=== PATIENT | female | born 1935 | race Caucasian/White ===

== ENCOUNTER → 2016-11-10 | Outpatient (CLI) | payer MEDICARE ==
[~2016-11-10] MED LIST: ACETAMINOPHEN-H1 TA2 PO; COZAAR50 MG PO; CYCLOBENZAPRINE10 MG PO; HYDROCODONE BIT1 T11 PO; IBU800 M1 PO; LEVOFLOXACIN500 MG PO; MACROBID100 M1 PO; MEDROL DOSEPAK4 MG PO; MELOXICAM15 MG PO; MOBIC15 MG PO; MYCOLOG CREAM 115 GM T; NASONEX0.05 MG/AC NAS; NORVASC5 MG PO; PREDNICOT10 MG PO; PREDNISONE10 MG PO; PREMARIN0.3 MG PO; PYRIDIUM200 MG PO; VICODIN HP 10-1 EACH PO; [UNRECOGNIZED DRUG - OTHER] PO; [UNRECOGNIZED DRUG - REMARK]
== END | disposition home or self-care (01) ==
LOC: LAB 11:51
DX: E83.51 Hypocalcemia (principal)

== ENCOUNTER → 2017-04-29 | Outpatient (CLI) | payer MEDICARE ==
[2017-04-29 12:31] LABS: BASO % 0.4 % (0.0-1.0); EOS # 0.1 10*3/uL (0.0-0.4); EOS % 1.4 % (1.0-4.0); HEMATOCRIT 36.1 % (37.0-47.0); HEMOGLOBIN 11.9 g/dl (12.0-16.0); LYMPH # 1.5 10*3/uL (1.3-4.4); LYMPH % 19.3 % (27.0-41.0); MEAN CELL VOLUME 90.5 fl (81.0-99.0); MEAN CORPUSCULAR HGB 29.8 pg (27.0-31.0); MEAN PLATELET VOLUME 9.6 fl (9.6-12.3); MONO # 0.5 10*3/uL (0.1-1.0); MONO % 6.4 % (3.0-9.0); NEUT # 5.5 10*3/uL (2.3-7.9); PLATELET COUNT AUTOMATED 275 10*3/uL (130-400); RED BLOOD COUNT 3.99 10*6/uL (4.10-5.10); RED CELL DISTRI WIDTH 13.5 % (0-14.5); WHITE BLOOD COUNT 7.6 10*3/uL (4.8-10.8)
[2017-04-29 12:49] LABS: ALBUMIN 3.5 gm/dl (3.1-4.5); ALKALINE PHOSPHATASE 70 U/L (45-117); BILIRUBIN, DIRECT < 0.1 mg/dL (0.0-0.2); BUN 16 mg/dl (7-24); CHLORIDE 106 mmol/L (98-107); CREATININE 0.57 mg/dL (0.55-1.02); POTASSIUM 3.9 mmol/L (3.5-5.1); SGOT/AST 17 IU/L (3-35); SGPT/ALT 30 U/L (12-78); SODIUM 142 mmol/L (136-145); TOTAL PROTEIN 6.8 gm/dL (6.4-8.2)
== END | disposition home or self-care (01) ==
LOC: LAB 11:49
PROVIDERS: Family Medicine
DX: I10 Essential (primary) hypertension (principal); E55.9 Vitamin D deficiency, unspecified

== ENCOUNTER 2017-07-08 11:11 | Emergency (ER) | payer MEDICARE ==
[~2017-07-08] VITALS: Ht 167.6 cm; Wt 72.6 kg
[2017-07-08 11:18] VITALS: BP 171/69
[2017-07-08] MEDS ORDERED: CLEOCIN HCL300 MG PO (11:47)
== END 2017-07-08 11:48 | disposition home or self-care (01) ==
LOC: ED 11:11
DX: L03.115 Cellulitis of right lower limb (principal); Z90.710 Acquired absence of both cervix and uterus; Z98.890 Other specified postprocedural states; Z90.49 Acquired absence of other specified parts of digestive tract; Z79.899 Other long term (current) drug therapy; Z88.2 Allergy status to sulfonamides

== ENCOUNTER 2017-07-27 12:08 | Emergency (ER) | payer MEDICARE ==
[~2017-07-27] VITALS: Ht 165.1 cm; Wt 72.6 kg
[~2017-07-27 12:08] MED LIST changes: +CLEOCIN HCL300 MG PO
[2017-07-27 12:15] VITALS: BP 184/88
[2017-07-27 12:57] LABS: BASO % 0.4 % (0.0-1.0); EOS # 0.1 10*3/uL (0.0-0.4); EOS % 1.4 % (1.0-4.0); HEMATOCRIT 37.5 % (37.0-47.0); HEMOGLOBIN 12.3 g/dl (12.0-16.0); LYMPH # 1.8 10*3/uL (1.3-4.4); LYMPH % 35.8 % (27.0-41.0); MEAN CELL VOLUME 89.3 fl (81.0-99.0); MEAN CORPUSCULAR HGB 29.3 pg (27.0-31.0); MEAN CORPUSCULAR HGB CONC 32.8 g/dl (33.0-37.0); MONO # 0.5 10*3/uL (0.1-1.0); MONO % 9.7 % (3.0-9.0); NEUT # 2.6 10*3/uL (2.3-7.9); NEUT % 52.5 % (47.0-73.0); PLATELET COUNT AUTOMATED 226 10*3/uL (130-400); RED CELL DISTRI WIDTH 12.4 % (0-14.5); WHITE BLOOD COUNT 4.9 10*3/uL (4.8-10.8)
[2017-07-27 13:15] LABS: ALBUMIN 3.5 gm/dl (3.1-4.5); ALKALINE PHOSPHATASE 60 U/L (45-117); BUN 13 mg/dl (7-24); CHLORIDE 108 mmol/L (98-107); CREATININE 0.58 mg/dL (0.55-1.02); POTASSIUM 3.6 mmol/L (3.5-5.1); SGOT/AST 16 IU/L (3-35); SGPT/ALT 23 U/L (12-78); SODIUM 141 mmol/L (136-145); TOTAL PROTEIN 6.9 gm/dL (6.4-8.2)
[2017-07-27] MEDS ORDERED: NAPROSYN500 MG PO (13:18)
== END 2017-07-27 13:21 | disposition home or self-care (01) ==
LOC: ED 12:08
PROVIDERS: Nurse Practitioner Family
DX: M79.661 Pain in right lower leg (principal); R03.0 Elevated blood-pressure reading, without diagnosis of hypertension; Z90.710 Acquired absence of both cervix and uterus; Z90.49 Acquired absence of other specified parts of digestive tract; Z88.2 Allergy status to sulfonamides; Z79.899 Other long term (current) drug therapy

== ENCOUNTER 2017-11-13 12:32 | Emergency (ER) | payer MEDICARE ==
[~2017-11-13] VITALS: Ht 165.1 cm; Wt 72.6 kg
[~2017-11-13 12:32] MED LIST changes: +NAPROSYN500 MG PO
[2017-11-13 12:34] VITALS: BP 166/68
[2017-11-13] MEDS ORDERED: VISTARIL25 MG PO (12:42)
== END 2017-11-13 12:55 | disposition home or self-care (01) ==
LOC: ED 12:32
DX: R21 Rash and other nonspecific skin eruption (principal); R03.0 Elevated blood-pressure reading, without diagnosis of hypertension; Z88.2 Allergy status to sulfonamides; Z79.899 Other long term (current) drug therapy

== ENCOUNTER 2018-02-22 22:47 | Inpatient (IN) | payer MEDICARE ==
[~2018-02-22] VITALS: Ht 165.1 cm; Wt 65.5 kg
--- NOTE | ~2018-02-22 | EKG ---
[place], [place] ELECTROCARDIOGRAM REPORT NAME: ULISES CELAYA UNIT #: [id number] ROOM: 420 DOCTOR: ABEL DRAFT REPORT BIRTHDATE: [birth year] [facility] Test Date: 2018-02-22 Test Time: 23:34:34 Pat Name: ULISES CELAYA Department: Room: 420 Gender: F [employer] Consultant: SS RESP : 1935 Requested By: DAVIDE TANG Order Number: [id number] Reading MD: John Petersen MD Measurements Intervals [place] Rate: 78 P: 49 ID: [id number] QRS: 67 QRSD: 96 T: 61 QT: 408 QTc: 465 Interpretive Statements Sinus rhythm Borderline prolonged ID interval Abnormal R-wave progression, early transition Electronically Signed On 02-25-2018 14:26:47 PST by John Petersen MD CM:EKGRPT:ELECTROCARDIOGRAM REPORT [id number] DAVIDE SMART DRAFT REPORT DAVIDE TANG DO
[2018-02-22 22:47] VITALS: BP 164/61
[~2018-02-22 22:47] MED LIST changes: +VISTARIL25 MG PO
[2018-02-22 23:40] LABS: BASO % 0.4 % (0.0-1.0); EOS # 0.2 10*3/uL (0.0-0.4); EOS % 1.7 % (1.0-4.0); HEMATOCRIT 34.6 % (37.0-47.0); HEMOGLOBIN 11.3 g/dl (12.0-16.0); LYMPH # 1.8 10*3/uL (1.3-4.4); LYMPH % 19.1 % (27.0-41.0); MEAN CELL VOLUME 91.1 fl (81.0-99.0); MEAN CORPUSCULAR HGB 29.7 pg (27.0-31.0); MEAN CORPUSCULAR HGB CONC 32.7 g/dl (33.0-37.0); MEAN PLATELET VOLUME 9.6 fl (9.6-12.3); MONO # 0.6 10*3/uL (0.1-1.0); MONO % 6.3 % (3.0-9.0); NEUT # 6.8 10*3/uL (2.3-7.9); NEUT % 72.2 % (47.0-73.0); PLATELET COUNT AUTOMATED 236 10*3/uL (130-400); RED CELL DISTRI WIDTH 13.2 % (0-14.5); WHITE BLOOD COUNT 9.5 10*3/uL (4.8-10.8)
[2018-02-22 23:57] LABS: ALBUMIN 3.3 gm/dl (3.1-4.5); ALKALINE PHOSPHATASE 60 U/L (45-117); BUN 21 mg/dl (7-24); CHLORIDE 109 mmol/L (98-107); CREATININE 0.59 mg/dL (0.55-1.02); POTASSIUM 3.7 mmol/L (3.5-5.1); SGOT/AST 15 IU/L (3-35); SGPT/ALT 21 U/L (12-78); SODIUM 143 mmol/L (136-145); TOTAL PROTEIN 6.7 gm/dL (6.4-8.2)
[2018-02-22 23:59] LABS: TROPONIN I < 0.015 ng/ml (<0.045)
[2018-02-23] VITALS (7 sets, daily range): BP systolic 146–172; BP diastolic 51–87
[2018-02-23 01:10] LABS: BILIRUBIN NEGATIVE (NEGATIVE); BLOOD 1+ (NEGATIVE); CLARITY SL CLOUDY (CLEAR); COLOR YELLOW (YELLOW); GLUCOSE NEGATIVE (NEGATIVE); KETONE NEGATIVE (NEGATIVE); LEUKO ESTERASE TRACE (NEGATIVE); NITRITE NEGATIVE (NEGATIVE); UROBILINOGEN 0.2 E.U./dl (0.2-1.0)
[2018-02-23 01:24] LABS: EPITHELIAL CELLS 25-30
[2018-02-23] MEDS ORDERED: BENADRYL ALLERG25 M5 PO (03:02)
[2018-02-24] VITALS: BP 113/59; BP 149/58
[2018-02-24 06:28] LABS: BASO % 0.4 % (0.0-1.0); EOS # 0.1 10*3/uL (0.0-0.4); EOS % 1.9 % (1.0-4.0); HEMOGLOBIN 10.7 g/dl (12.0-16.0); LYMPH # 1.2 10*3/uL (1.3-4.4); LYMPH % 17.7 % (27.0-41.0); MEAN CELL VOLUME 91.4 fl (81.0-99.0); MEAN CORPUSCULAR HGB 29.6 pg (27.0-31.0); MEAN CORPUSCULAR HGB CONC 32.4 g/dl (33.0-37.0); MEAN PLATELET VOLUME 9.9 fl (9.6-12.3); MONO # 0.6 10*3/uL (0.1-1.0); MONO % 9.2 % (3.0-9.0); NEUT # 4.9 10*3/uL (2.3-7.9); NEUT % 70.5 % (47.0-73.0); PLATELET COUNT AUTOMATED 228 10*3/uL (130-400); RED BLOOD COUNT 3.61 10*6/uL (4.10-5.10); RED CELL DISTRI WIDTH 13.3 % (0-14.5)
[2018-02-24 06:47] LABS: BUN 12 mg/dl (7-24); CHLORIDE 109 mmol/L (98-107); CHOLESTEROL 125 mg/dL (<200); CREATININE 0.46 mg/dL (0.55-1.02); PHOSPHOROUS 3.4 mg/dL (2.5-4.9); POTASSIUM 3.6 mmol/L (3.5-5.1); SODIUM 141 mmol/L (136-145); TRIGLYCERIDES 83 mg/dl (<150); VLDL CHOLESTEROL 17 mg/dL (6-40)
[2018-02-24 06:57] LABS: HDL CHOLESTEROL 38 mg/dl (40-60); LDL CHOLESTEROL 70 mg/dL (9-159)
[2018-02-24] MEDS ORDERED: HYDROCODONE-AC1 EACH PO (07:22)
[2018-02-24] MEDS ORDERED: VITAMIN D5000 UNI1 PO (07:23)
[2018-02-24 08:00] VITALS: BP 155/56
[2018-02-24 10:35] LABS: VITAMIN D, 25-HYDROXY 35.1 ng/mL (30-100)
[2018-02-24 12:00] VITALS: BP 150/58
[2018-02-24 16:00] VITALS: BP 142/51
[2018-02-24 20:00] VITALS: BP 155/55
[2018-02-25] VITALS: BP 146/62
[2018-02-25 08:00] VITALS: BP 162/64
[2018-02-25 12:00] VITALS: BP 158/64
[2018-02-25 15:35] VITALS: BP 160/61
[2018-02-25 20:00] VITALS: BP 163/58
[2018-02-26] VITALS: BP 146/59
[2018-02-26 08:00] VITALS: BP 150/58
[2018-02-26 12:00] VITALS: BP 130/48
[2018-02-26] MEDS ORDERED: HYDROCODONE-AC1 EACH PO (13:29)
[2018-03-10] MEDS ORDERED: DOXYCYCLINE100 M3 PO (12:17)
[2018-03-10] MEDS ORDERED: ULTRAM50 MG PO (12:18)
[2018-03-10] MEDS ORDERED: XARELTO10 MG PO (12:19)
[2018-03-11] MEDS ORDERED: MACROBID100 M1 PO (14:55)
[2018-03-11] MEDS ORDERED: TRAZODONE50 MG PO (14:56)
[2018-03-11] MEDS ORDERED: TYLENOL325 M1 PO (14:57)
== END 2018-02-26 15:40 | disposition other institution (70) | DRG 563 ==
LOC: ED 22:47 → EDHOLD 02-23 02:24 → 4E 02-23 02:24
PROVIDERS: Emergency Medicine; Student in an Organized Health Care Education/Training Program
DX: S82.852A Displaced trimalleolar fracture of left lower leg, initial encounter for closed fracture (principal); E44.1 Mild protein-calorie malnutrition; I50.32 Chronic diastolic (congestive) heart failure; I11.0 Hypertensive heart disease with heart failure; R55 Syncope and collapse; E87.8 Other disorders of electrolyte and fluid balance, not elsewhere classified; W18.39XA Other fall on same level, initial encounter; D64.9 Anemia, unspecified; R73.9 Hyperglycemia, unspecified; M51.36 Other intervertebral disc degeneration, lumbar region; M17.0 Bilateral primary osteoarthritis of knee; C44.722 Squamous cell carcinoma of skin of right lower limb, including hip; Z88.2 Allergy status to sulfonamides; Z87.440 Personal history of urinary (tract) infections; Z90.49 Acquired absence of other specified parts of digestive tract; Z90.710 Acquired absence of both cervix and uterus; Z82.49 Family history of ischemic heart disease and other diseases of the circulatory system; Z81.2 Family history of tobacco abuse and dependence; Z79.899 Other long term (current) drug therapy; Y93.89 Activity, other specified; Y92.098 Other place in other non-institutional residence as the place of occurrence of the external cause; Y99.8 Other external cause status; Z68.24 Body mass index [BMI] 24.0-24.9, adult

== ENCOUNTER → 2018-03-10 | Day surgery (SDC) | payer MEDICARE ==
[~2018-03-10] VITALS: Ht 160 cm; Wt 66.2 kg
[2018-03-10] VITALS (9 sets, daily range): BP systolic 149–188; BP diastolic 53–80
[~2018-03-10] MED LIST changes: +BENADRYL ALLERG25 M5 PO; +CARTIA XT120 MG PO; +DOXYCYCLINE100 M3 PO; +ELIQUIS5 M1 PO; +HYDROCODONE-AC1 EACH PO; +K-TAB10 MEQ PO; +TEMAZEPAM15 M1 PO; +TRAZODONE50 MG PO; +TYLENOL325 M1 PO; +ULTRAM50 MG PO; +VITAMIN D5000 UNI1 PO; +XARELTO10 MG PO
--- NOTE | ~2018-03-10 | WRIGHTHP ---
[place], [place] PATIENT HISTORY AND PHYSICAL EXAM NAME: ULISES CELAYA [facility] #: [id number] UNIT #: [id number] ROOM: DOCTOR: ALLISON BARBOSA DPM BIRTHDATE: [birth year] DOS: 03/10/2018 INDICATION NOTE: The patient sustained an injury approximately 10 days ago to her left lower extremity. She was diagnosed with a trimalleolar ankle fracture that was displaced. With this in mind, she is set for surgery today on 03/10/2018, to have open reduction internal fixation of left ankle. At this time, she is aware of pros, cons, risks, benefits, overcorrection, undercorrection, recurrence, numbness, infection, worsening, delayed union, nonunion, DVT, PE, and limb loss were explained to her and she understands. There is risk for nerve artery vein disease and/or bone healing issues. She understands she is older, her bones are osteopenic and she may have some hard time with this healing and nonweightbearing type. With this in mind, she understands the perioperative management, she understands anticoagulation therapy. She understands the perioperative course as well. She signed the consent and agreed to site marking this morning prior to surgery and anesthesia. She had a popliteal block done in the preop holding area. ALLISON BARBOSA DPM CM:HISPHYS:PATIENT HISTORY AND PHYSICAL EXAMINATION 1231 1343 ALLISON BARBOSA DPM 03/17/182051 interface
--- NOTE | ~2018-03-10 | O ---
[place], [place] OPERATIVE NOTE NAME[id number] UNIT #: [id number] ROOM: DOCTOR: CHELSEY OLIVASALLISON BIRTHDATE: [birth year] DOS: 03/10/2018 SURGEON: Allison Barbosa DPM ASSISTANTS: 1. Dr. Santos Fleming, fellow. 2. Shay Garcia, PGY2. 3. Robby Maya, PGY1. PREOPERATIVE DIAGNOSIS: Unstable trimalleolar ankle fracture, left ankle. POSTOPERATIVE DIAGNOSES: Unstable trimalleolar ankle fracture, left ankle plus a medial deltoid ligament rupture. PROCEDURES: Open reduction and internal fixation of trimalleolar ankle fracture and repair of medial deltoid ligament of the left lower extremity. PROCEDURE IN DETAIL: The patient was seen in preop holding area and appropriate site marking was performed. She concurred with the consent and the site marking and agreed with surgery and perioperative management. She was brought to the OR and placed on well-padded OR table. Anesthesia achieved. Once the anesthesia was achieved, the left foot and leg were prepped and draped in usual sterile fashion. Hemostasis was accomplished by mid-thigh tourniquet, which was inflated to 300 mmHg. PROCEDURE #1: REDUCTION OF THE FIBULA FRACTURE: Attention was turned to the lateral aspect of the fibula over the ankle where an incision was made approximately 12 cm, was deepened in the same plane using sharp and blunt dissection, avoiding neurovascular structures, identifying the ankle fracture. At this time, the fracture was reduced and fixated temporarily with a bone clamp, checked on fluoroscopy, interfrag compression screw was applied as well as locking plate. The bone was osteopenic, combination of plate was applied and then an interfrag screw and then with a combination of locking and nonlocking screws through the plate due to the patient's significant amount of osteopenia. The bone was very soft and did not hold the screws very well; therefore, more locking screws were used than normal. Next, attention directed medially where an incision was made over the medial malleolus in the same plane using sharp and blunt dissection, avoiding neurovascular structures, carried deep down to deep tissues of medial malleolar fracture was identified. Also, there was complete rupture, partial tear of deltoid ligament. PROCEDURE #2: REDUCTION OF THE MEDIAL MALLEOLUS: At this point in time, with K wires was temporarily fixated. Bone was noted to be very osteopenic at that time, and we thought a plate using a fixation through the fracture fragment up the tibia. At this point in time a plate was used and the tip was bent to create compression in this area and 3.5 screws and lag screws were used to stabilize this fracture. At this point in time, this was checked under fluoroscopy and the syndesmosis appeared to be intact; however, the patient has osteopenia, and she had a medial deltoid that was unstable and loose and at this point in time, we felt it was best to go ahead and put Syndesmosis screws [place], [place] OPERATIVE NOTE NAME: ULISES CELAYA UNIT #: [id number] ROOM: DOCTOR: ALLISON BARBOSA DPM BIRTHDATE: [birth year] providing more added stability to the ankle. At this point in time, there was some instability of the medial deltoid ligament. PROCEDURE #3: REPAIR OF MEDIAL DELTOID LIGAMENT: At this time, the medial deltoid ligament was prepared and more proximally stabilizing the deltoid with fluoroscopy stressing of the syndesmosis which was intact with a syndesmotic screw. It was checked before and it was partially loose, not completely loose, so we put the syndesmosis screws in the medial deltoid. This is intact now and did anatomic alignment. The deep tissues were closed using 0 Vicryl, skin using 2-0 nylon. She had a pop block prior to surgery. At this point in time, Adaptic, Betadine-soaked, 4 x 4s, Blaise were applied. The surgical wounds were dressed with Betadine-soaked Adaptic, 4 x 4s, Blaise in a sterile compressive fashion. Univalve cast was applied. She tolerated the procedure and anesthesia well and left the OR with vital signs stable and vascular status intact. The tourniquet was dropped at 2 hours and once it was dropped, good cap refill time was noted to return to the ends of all digits of her foot on the left. She tolerated procedure and anesthesia well and left the OR with vital signs stable and vascular status intact. ALLISON BARBOSA DPM CM:OPRECORD:OPERATIVE NOTE 1231 1423 ALLISON BARBOSA DPAidee 03/18/18 0919 interface
--- NOTE | ~2018-03-10 | WRIGHTHP ---
[place], [place] PATIENT HISTORY AND PHYSICAL EXAM [id number] UNIT #: [id number] ROOM: DOCTOR: ALLISON BARBOSA DPM BIRTHDATE: [birth year] DOS: 03/10/2018 LOWER EXTREMITY PHYSICAL EXAM: VASCULAR: She has palpable pulses, 2/4 DP and PT bilaterally. Good refill time. She has some secondary peripheral localized edema, left lower extremity. NEUROLOGIC: Intact epicritic sensation that appears to be slightly diminished. DERMATOLOGICAL: She has significant ecchymosis to her left lower leg and foot. ORTHOPEDIC EXAM: She has an unstable trimalleolar ankle fracture, left. MUSCULOSKELETAL: She appears to have a tight heel cord ALLISON BARBOSA DPM CM:HISPHYS:PATIENT HISTORY AND PHYSICAL EXAMINATION 1231 1346 ALLISON BARBOSA DPM 03/18/18 0751 interface
== END | disposition home or self-care (01) ==
LOC: SDC 03-09 08:00
DX: S82.852A Displaced trimalleolar fracture of left lower leg, initial encounter for closed fracture (principal); X58.XXXA Exposure to other specified factors, initial encounter; Y93.89 Activity, other specified; Y92.89 Other specified places as the place of occurrence of the external cause; Y99.8 Other external cause status; I10 Essential (primary) hypertension; M19.90 Unspecified osteoarthritis, unspecified site; Z88.1 Allergy status to other antibiotic agents; Z88.2 Allergy status to sulfonamides; Z90.49 Acquired absence of other specified parts of digestive tract; Z90.710 Acquired absence of both cervix and uterus

== ENCOUNTER → 2018-03-11 | Emergency (ER) | payer MEDICARE ==
[~2018-03-11] VITALS: Ht 165.1 cm; Wt 68.0 kg
[~2018-03-11] MED LIST changes: -CARTIA XT120 MG PO; -ELIQUIS5 M1 PO; -K-TAB10 MEQ PO; -TEMAZEPAM15 M1 PO
[2018-03-11 14:54] LABS: BASO % 0.2 % (0.0-1.0); EOS % 0.2 % (1.0-4.0); HEMOGLOBIN 10.3 g/dl (12.0-16.0); LYMPH # 1.5 10*3/uL (1.3-4.4); LYMPH % 11.4 % (27.0-41.0); MEAN CELL VOLUME 89.9 fl (81.0-99.0); MEAN CORPUSCULAR HGB 29.9 pg (27.0-31.0); MEAN CORPUSCULAR HGB CONC 33.2 g/dl (33.0-37.0); MEAN PLATELET VOLUME 9.3 fl (9.6-12.3); MONO # 1.1 10*3/uL (0.1-1.0); NEUT # 10.5 10*3/uL (2.3-7.9); NEUT % 79.9 % (47.0-73.0); PLATELET COUNT AUTOMATED 297 10*3/uL (130-400); RED BLOOD COUNT 3.45 10*6/uL (4.10-5.10); RED CELL DISTRI WIDTH 12.6 % (0-14.5); WHITE BLOOD COUNT 13.1 10*3/uL (4.8-10.8)
[2018-03-11 15:07] LABS: ACT PARTIAL THROMBO TIME 29.5 SECONDS (20.8-31.5); INTERNATIONAL NORM RATIO 1.1 (2.0-3.5)
[2018-03-11 15:11] LABS: ALBUMIN 2.7 gm/dl (3.1-4.5); ALKALINE PHOSPHATASE 69 U/L (45-117); BUN 13 mg/dl (7-24); CHLORIDE 102 mmol/L (98-107); CREATININE 0.74 mg/dL (0.55-1.02); LIPASE 69 U/L (73-393); POTASSIUM 3.9 mmol/L (3.5-5.1); SGOT/AST 11 IU/L (3-35); SGPT/ALT 12 U/L (12-78); SODIUM 138 mmol/L (136-145); TOTAL PROTEIN 6.3 gm/dL (6.4-8.2)
[2018-03-11 17:37] LABS: BILIRUBIN NEGATIVE (NEGATIVE); BLOOD 2+ (NEGATIVE); CLARITY SL CLOUDY (CLEAR); COLOR YELLOW (YELLOW); GLUCOSE NEGATIVE (NEGATIVE); KETONE NEGATIVE (NEGATIVE); LEUKO ESTERASE 3+ (NEGATIVE); NITRITE POSITIVE (NEGATIVE); PH 6.5 (5.0-9.0); SPECIFIC GRAVITY <= 1.005 (1.005-1.030); UROBILINOGEN 0.2 E.U./dl (0.2-1.0)
[2018-03-11 17:44] LABS: BACTERIA 3+; WBC 51-100 wbc/hpf (0-5)
[2018-03-11 17:46] LABS: RBC 21-30 rbc/hpf (0-2)
[2018-03-11 21:11] VITALS: BP 145/80
== END ==
LOC: ED 14:41
PROVIDERS: Nurse Practitioner Family
DX: A41.9 Sepsis, unspecified organism (principal); N39.0 Urinary tract infection, site not specified; R18.8 Other ascites; I11.0 Hypertensive heart disease with heart failure; I50.32 Chronic diastolic (congestive) heart failure; M17.10 Unilateral primary osteoarthritis, unspecified knee; Z88.2 Allergy status to sulfonamides; Z79.899 Other long term (current) drug therapy

== ENCOUNTER → 2018-05-26 | Day surgery (SDC) | payer MEDICARE ==
[2018-05-26] VITALS (9 sets, daily range): BP systolic 136–159; BP diastolic 56–87
[~2018-05-26] MED LIST changes: +CARTIA XT120 MG PO; +ELIQUIS5 M1 PO; +K-TAB10 MEQ PO; +TEMAZEPAM15 M1 PO
--- NOTE | ~2018-05-26 | O ---
[place], [place] OPERATIVE NOTE NAME: ULISES CELAYA UNIT #: [id number] ROOM: DOCTOR: ALLISON BARBOSA DPM BIRTHDATE: [birth year] DOS: 05/26/2018 SURGEON: Dr. Barbosa. TITLE I DIRECTOR: 1. Dr. Santos Fleming, fellow. 2. Robby Maya, PGY1. PREOPERATIVE DIAGNOSES: 1. Painful hardware, left lateral ankle proximal, 2. Painful hardware of left lateral distal ankle. PROCEDURE: 1. Removal of hardware, proximal left ankle relative to the plate. 2. Removal of hardware, distal left lateral ankle. PROCEDURE IN DETAIL: The patient was seen in preoperative holding area, appropriate site marking was performed, she and her family concurred. She was brought to OR, placed on well-padded OR table under fluoroscopy guidance. PROCEDURE #1: REMOVAL OF PAINFUL HARDWARE IN THE MOST PROXIMAL PORTION OF THE SYNDESMOTIC SCREWS: Attention was directed where a stab incision was made under fluoroscopy, was deepened in the same plane using sharp and blunt dissection, avoiding neurovascular structures, carried down to the bone. At this point in time, the soft tissue reflected off the hardware, and at this point in time, the hardware was identified and screw was taken out. Area was flushed with copious amounts of sterile saline. Skin was secured in 2-0 nylon. Next, a distal incision was performed under fluoroscopy guidance. At this point in time, with the appropriate alignment based on fluoroscopy, the incision was made and was deepened in the same plane using sharp and blunt dissection avoiding neurovascular structures, carried down to the bone where the most distal portion of the syndesmotic screw was identified. At this time, the screw was backed out completely. Area was flushed with copious amounts of sterile saline and the skin then was closed using 2-0 nylon. Surgical wounds were dressed with Betadine-soaked Adaptic, 4 x 4s, Blaise in a sterile compressive fashion. She tolerated the procedure and anesthesia well and left the OR with vital signs stable and vascular status intact. [place], [place] OPERATIVE NOTE NAME: ULISES CELAYA UNIT #: [id number] ROOM: DOCTOR: ALLISON BARBOSA DPM BIRTHDATE: [birth year] ALLISON BARBOSA DPM CM:OPRECORD:OPERATIVE NOTE 1436 1535 ALLISON BARBOSA DPM 05/26/18 1536 interface
--- NOTE | ~2018-05-26 | WRIGHTHP ---
[place], [place] PATIENT HISTORY AND PHYSICAL EXAM [id number] UNIT #: [id number] ROOM: DOCTOR: ALLISON BARBOSA DPM BIRTHDATE: [birth year] DOS: 05/26/2018 LOWER EXTREMITY PHYSICAL EXAM VASCULAR: She has had vascular studies done demonstrating good perfusion. Her pedal pulses are palpable, 2/4 DP and PT bilaterally. Good cap refill time. NEUROLOGICAL: She has decreased epicritic extension in the left lower extremity. DERMATOLOGICAL: Shows well-healed scars. The wounds are healing very nicely. Skin integrity is intact. MUSCULOSKELETAL: Shows good range of motion. Orthopedic exam, painful hardware x 2, left ankle. ALLISON BARBOSA DPM CM:HISPHYS:PATIENT HISTORY AND PHYSICAL EXAMINATION 1436 1534 ALLISON BARBOSA DPM 05/26/18 1534 interface
--- NOTE | ~2018-05-26 | WRIGHTHP ---
[place], [place] PATIENT HISTORY AND PHYSICAL EXAM NAME: ULISES CELAYA [facility] #: [id number] UNIT #: [id number] ROOM: DOCTOR: ALLISON BARBOSA DPM BIRTHDATE: [birth year] DOS: 05/26/2018 INDICATION: The patient sustained a significant ankle fracture in the left, approximately in February. At this time, the patient is doing extremely well; however, she had 2 syndesmotic screws inserted from lateral to medial. At this time, she is set for surgery at [facility] today on 05/26/2018 for removal of hardware x 2. With this in mind, she is aware of pros, cons, risks and benefits, overcorrection, undercorrection, recurrence, numbness, infection, worsening of it. With this in mind, the patient elected for surgical hardware removal x 2. She understands perioperative management, consents and appropriate site marked. She and her family signed off on those items and they agreed with the surgery as well as postoperative course. ALLISON BARBOSA DPM CM:HISPHYS:PATIENT HISTORY AND PHYSICAL EXAMINATION 1436 1531 ALLISON BARBOSA DPM 05/26/18 1837 interface
== END | disposition home or self-care (01) ==
LOC: SDC 05-21 11:45
DX: T84.84XA Pain due to internal orthopedic prosthetic devices, implants and grafts, initial encounter (principal); M25.572 Pain in left ankle and joints of left foot; I10 Essential (primary) hypertension; K21.9 Gastro-esophageal reflux disease without esophagitis; Z98.890 Other specified postprocedural states; Z88.2 Allergy status to sulfonamides; Z79.899 Other long term (current) drug therapy; Z90.49 Acquired absence of other specified parts of digestive tract; Z90.710 Acquired absence of both cervix and uterus; Y83.8 Other surgical procedures as the cause of abnormal reaction of the patient, or of later complication, without mention of misadventure at the time of the procedure

== ENCOUNTER → 2018-06-23 | Outpatient (CLI) | payer MEDICARE | END | disposition home or self-care (01) | LOC: US 16:20 | DX: R60.0 Localized edema (principal); M79.89 Other specified soft tissue disorders ==

== ENCOUNTER 2019-01-02 12:37 | Emergency (ER) | payer MEDICARE ==
[~2019-01-02] VITALS: Ht 167.6 cm; Wt 68.0 kg
[2019-01-02 12:40] VITALS: BP 157/82
[2019-01-02] MEDS ORDERED: PREDNISONE50 MG PO (13:52)
== END 2019-01-02 14:05 | disposition home or self-care (01) ==
LOC: ED 12:37
DX: L25.9 Unspecified contact dermatitis, unspecified cause (principal); I11.0 Hypertensive heart disease with heart failure; I50.32 Chronic diastolic (congestive) heart failure; Z88.2 Allergy status to sulfonamides; Z79.2 Long term (current) use of antibiotics; Z79.899 Other long term (current) drug therapy; Z90.710 Acquired absence of both cervix and uterus; Z90.49 Acquired absence of other specified parts of digestive tract

== ENCOUNTER 2019-01-12 11:31 | Emergency (ER) | payer MEDICARE ==
[~2019-01-12] VITALS: Ht 167.6 cm; Wt 68.0 kg
[~2019-01-12 11:31] MED LIST changes: +PREDNISONE50 MG PO
[2019-01-12 12:17] VITALS: BP 158/62
[2019-01-12 12:28] LABS: BASO % 0.3 % (0.0-1.0); EOS # 0.3 10*3/uL (0.0-0.4); EOS % 2.6 % (1.0-4.0); HEMOGLOBIN 11.7 g/dl (12.0-16.0); LYMPH # 1.4 10*3/uL (1.3-4.4); LYMPH % 12.8 % (27.0-41.0); MEAN CELL VOLUME 93.5 fl (81.0-99.0); MEAN CORPUSCULAR HGB 30.4 pg (27.0-31.0); MEAN CORPUSCULAR HGB CONC 32.5 g/dl (33.0-37.0); MEAN PLATELET VOLUME 9.4 fl (9.6-12.3); MONO % 8.8 % (3.0-9.0); NEUT # 8.1 10*3/uL (2.3-7.9); PLATELET COUNT AUTOMATED 271 10*3/uL (130-400); RED BLOOD COUNT 3.85 10*6/uL (4.10-5.10); WHITE BLOOD COUNT 10.8 10*3/uL (4.8-10.8)
[2019-01-12 12:41] LABS: ALBUMIN 3.1 gm/dl (3.1-4.5); ALKALINE PHOSPHATASE 60 U/L (45-117); BUN 13 mg/dl (7-24); CHLORIDE 107 mmol/L (98-107); CREATININE 0.49 mg/dL (0.55-1.02); POTASSIUM 3.8 mmol/L (3.5-5.1); SGOT/AST 9 IU/L (3-35); SGPT/ALT 15 U/L (12-78); SODIUM 140 mmol/L (136-145); TOTAL PROTEIN 6.5 gm/dL (6.4-8.2)
[2019-01-12] MEDS ORDERED: FLONASE ALLERG9.9 ML NAS (13:16)
[2019-01-12] MEDS ORDERED: ZITHROMAX250 MG PO (13:16)
== END 2019-01-12 14:08 | disposition home or self-care (01) ==
LOC: ED 11:31
PROVIDERS: Nurse Practitioner Family
DX: J01.90 Acute sinusitis, unspecified (principal); J40 Bronchitis, not specified as acute or chronic; M19.90 Unspecified osteoarthritis, unspecified site; I10 Essential (primary) hypertension; Z88.2 Allergy status to sulfonamides; Z79.899 Other long term (current) drug therapy

== ENCOUNTER → 2019-09-21 | Outpatient (CLI) | payer MEDICARE ==
[~2019-09-21] MED LIST changes: +FLONASE ALLERG9.9 ML NAS; +ZITHROMAX250 MG PO
[2019-09-21 10:00] LABS: BASO % 0.6 % (0.0-1.0); EOS # 0.1 10*3/uL (0.0-0.4); EOS % 1.5 % (1.0-4.0); HEMATOCRIT 38.2 % (37.0-47.0); LYMPH # 1.2 10*3/uL (1.3-4.4); LYMPH % 23.2 % (27.0-41.0); MEAN CELL VOLUME 91.6 fl (81.0-99.0); MEAN CORPUSCULAR HGB 30.5 pg (27.0-31.0); MEAN CORPUSCULAR HGB CONC 33.2 g/dl (33.0-37.0); MEAN PLATELET VOLUME 9.3 fl (9.6-12.3); MONO # 0.4 10*3/uL (0.1-1.0); MONO % 6.6 % (3.0-9.0); NEUT # 3.6 10*3/uL (2.3-7.9); NEUT % 67.7 % (47.0-73.0); PLATELET COUNT AUTOMATED 228 10*3/uL (130-400); RED BLOOD COUNT 4.17 10*6/uL (4.10-5.10); RED CELL DISTRI WIDTH 12.4 % (0-14.5); WHITE BLOOD COUNT 5.3 10*3/uL (4.8-10.8)
[2019-09-21 10:27] LABS: ALBUMIN 3.5 gm/dl (3.1-4.5); ALKALINE PHOSPHATASE 61 U/L (45-117); BILIRUBIN, DIRECT < 0.1 mg/dL (0.0-0.2); BUN 20 mg/dl (7-24); CHLORIDE 107 mmol/L (98-107); CHOLESTEROL 164 mg/dL (<200); CREATININE 0.62 mg/dL (0.55-1.02); HDL CHOLESTEROL 43 mg/dl (40-60); LDL CHOLESTEROL 106 mg/dL (9-159); POTASSIUM 3.9 mmol/L (3.5-5.1); SGOT/AST 11 IU/L (3-35); SGPT/ALT 21 U/L (12-78); SODIUM 139 mmol/L (136-145); THYROXINE (T4) TOTAL 9.4 ug/dl (4.8-13.9); TOTAL PROTEIN 7.1 gm/dL (6.4-8.2); TRIGLYCERIDES 77 mg/dl (<150); VLDL CHOLESTEROL 15 mg/dL (6-40)
== END | disposition home or self-care (01) ==
LOC: LAB 09:27
PROVIDERS: Family Medicine
DX: E55.9 Vitamin D deficiency, unspecified (principal); I10 Essential (primary) hypertension; Z79.899 Other long term (current) drug therapy

== ENCOUNTER 2020-04-10 14:48 | Emergency (ER) | payer MEDICARE ==
[~2020-04-10] VITALS: Wt 77.1 kg
[~2020-04-10 14:48] MED LIST changes: -CIPRO250 MG PO; -FLOMAX0.4 MG PO; -KEPPRA500 MG PO; -KLOR-CON M2020 ME1 PO; -MIRALAX17 GM PO; -OMNICEF300 MG PO; -PROVENTIL HFA6.7 GM INH; -RIVASTIGMINE T1.5 M1 PO; -RIVASTIGMINE TAR3 M1 PO; -VERAPAMIL HCL120 MG PO; -VIMPAT100 MG PO
[2020-04-10 14:53] VITALS: BP 152/98
[2020-04-10 18:02] LABS: BILIRUBIN Negative (Negative); BLOOD 2+ (Negative); CLARITY Cloudy (Clear); COLOR Yellow (Yellow); GLUCOSE Negative (Negative); KETONE Negative (Negative); LEUKO ESTERASE 1+ (Negative); NITRITE Negative (Negative); PH 5.5 (4.5-8.0); UROBILINOGEN 0.2 E.U./dl (0.0-1.0)
[2020-04-10 18:22] LABS: BACTERIA 4+
[2020-04-10] MEDS ORDERED: CIPRO250 MG PO (18:42)
[2020-04-24] MEDS ORDERED: VISTARIL25 MG PO (11:28)
== END 2020-04-10 18:38 | disposition home or self-care (01) ==
LOC: ED 14:48
PROVIDERS: Emergency Medicine
DX: N39.0 Urinary tract infection, site not specified (principal); Z88.2 Allergy status to sulfonamides; Z79.899 Other long term (current) drug therapy

== ENCOUNTER → 2020-04-10 | Outpatient (CLI) | payer MEDICARE ==
[~2020-04-10] MED LIST changes: +CIPRO250 MG PO; +FLOMAX0.4 MG PO; +KEPPRA500 MG PO; +KLOR-CON M2020 ME1 PO; +MIRALAX17 GM PO; +OMNICEF300 MG PO; +PROVENTIL HFA6.7 GM INH; +RIVASTIGMINE T1.5 M1 PO; +RIVASTIGMINE TAR3 M1 PO; +VERAPAMIL HCL120 MG PO; +VIMPAT100 MG PO
[2020-04-10 15:13] LABS: BASO % 0.5 % (0.0-1.0); EOS # 0.2 10*3/uL (0.0-0.4); EOS % 2.2 % (1.0-4.0); HEMATOCRIT 38.4 % (37.0-47.0); LYMPH # 1.5 10*3/uL (1.3-4.4); LYMPH % 18.8 % (27.0-41.0); MEAN CELL VOLUME 88.7 fl (81.0-99.0); MEAN CORPUSCULAR HGB 28.9 pg (27.0-31.0); MEAN CORPUSCULAR HGB CONC 32.6 g/dl (33.0-37.0); MEAN PLATELET VOLUME 9.6 fl (9.6-12.3); MONO # 0.7 10*3/uL (0.1-1.0); MONO % 7.9 % (3.0-9.0); NEUT # 5.8 10*3/uL (2.3-7.9); NEUT % 70.1 % (47.0-73.0); PLATELET COUNT AUTOMATED 277 10*3/uL (130-400); RED BLOOD COUNT 4.33 10*6/uL (4.10-5.10); WHITE BLOOD COUNT 8.2 10*3/uL (4.8-10.8)
[2020-04-10 15:28] LABS: ALBUMIN 3.7 gm/dl (3.1-4.5); ALKALINE PHOSPHATASE 73 U/L (45-117); BUN 20 mg/dl (7-24); CHLORIDE 108 mmol/L (98-107); CREATININE 0.49 mg/dL (0.55-1.02); POTASSIUM 3.7 mmol/L (3.5-5.1); SGOT/AST 15 IU/L (3-35); SGPT/ALT 24 U/L (12-78); SODIUM 142 mmol/L (136-145); TOTAL PROTEIN 6.9 gm/dL (6.4-8.2)
[2020-04-10 15:39] LABS: BILIRUBIN, DIRECT < 0.1 mg/dL (0.0-0.2)
== END | disposition home or self-care (01) ==
LOC: LAB 14:10
PROVIDERS: ATTEND Family Medicine
DX: I10 Essential (primary) hypertension (principal); R31.9 Hematuria, unspecified

== ENCOUNTER 2020-04-26 13:51 | Emergency (ER) | payer MEDICARE ==
[~2020-04-26] VITALS: Ht 162.6 cm; Wt 64.0 kg
[~2020-04-26 13:51] MED LIST changes: +CIPRO250 MG PO
[2020-04-26 14:00] VITALS: BP 100/62
[2020-04-26 15:07] LABS: BASO % 0.3 % (0.0-1.0); EOS # 0.2 10*3/uL (0.0-0.4); HEMATOCRIT 40.5 % (37.0-47.0); LYMPH # 1.6 10*3/uL (1.3-4.4); LYMPH % 15.4 % (27.0-41.0); MEAN CELL VOLUME 90.2 fl (81.0-99.0); MEAN CORPUSCULAR HGB CONC 32.1 g/dl (33.0-37.0); MEAN PLATELET VOLUME 9.4 fl (9.6-12.3); MONO % 9.7 % (3.0-9.0); NEUT # 7.7 10*3/uL (2.3-7.9); NEUT % 72.1 % (47.0-73.0); PLATELET COUNT AUTOMATED 351 10*3/uL (130-400); RED BLOOD COUNT 4.49 10*6/uL (4.10-5.10); RED CELL DISTRI WIDTH 11.7 % (0-14.5); WHITE BLOOD COUNT 10.6 10*3/uL (4.8-10.8)
[2020-04-26 15:34] LABS: ALBUMIN 3.2 gm/dl (3.1-4.5); ALKALINE PHOSPHATASE 68 U/L (45-117); BUN 22 mg/dl (7-24); CHLORIDE 109 mmol/L (98-107); CPK 371 U/L (26-192); CREATININE 0.58 mg/dL (0.55-1.02); POTASSIUM 3.6 mmol/L (3.5-5.1); SGOT/AST 27 IU/L (3-35); SGPT/ALT 29 U/L (12-78); SODIUM 142 mmol/L (136-145); TOTAL PROTEIN 6.9 gm/dL (6.4-8.2)
[2020-04-26 15:38] LABS: TROPONIN I < 0.015 ng/ml (<0.045)
[2020-04-26 16:13] LABS: BILIRUBIN 1+ (Negative); BLOOD 2+ (Negative); CLARITY Turbid (Clear); COLOR Dark Yellow (Yellow); GLUCOSE Negative (Negative); KETONE 2+ (Negative); LEUKO ESTERASE 1+ (Negative); NITRITE Positive (Negative); SPECIFIC GRAVITY 1.025 (1.001-1.030); UROBILINOGEN 0.2 E.U./dl (0.0-1.0)
[2020-04-26 16:31] LABS: BACTERIA 3+; CALCIUM OXALATE CRYSTALS 2+; RBC 16-20 rbc/hpf (0-2); WBC 51-100 wbc/hpf (0-5)
[2020-04-27] MEDS ORDERED: RIVASTIGMINE T1.5 M1 PO (11:16)
[2020-04-27] MEDS ORDERED: RIVASTIGMINE TAR3 M1 PO (11:18)
[2020-04-27] MEDS ORDERED: KEPPRA500 MG PO (11:19)
[2020-04-27] MEDS ORDERED: MIRALAX17 GM PO (11:20)
[2020-04-27] MEDS ORDERED: PROVENTIL HFA6.7 GM INH (11:23)
[2020-04-27] MEDS ORDERED: FLOMAX0.4 MG PO (11:24)
[2020-04-27] MEDS ORDERED: TYLENOL325 M1 PO (11:25)
[2020-04-27] MEDS ORDERED: VIMPAT100 MG PO (11:27)
[2020-04-27] MEDS ORDERED: VERAPAMIL HCL120 MG PO (13:09)
== END 2020-04-26 16:36 | disposition home or self-care (01) ==
LOC: ED 13:51
PROVIDERS: Emergency Medicine
DX: R62.7 Adult failure to thrive (principal); I50.32 Chronic diastolic (congestive) heart failure; I11.0 Hypertensive heart disease with heart failure; Z88.2 Allergy status to sulfonamides; Z79.899 Other long term (current) drug therapy

== ENCOUNTER 2020-04-27 09:35 | Inpatient (IN) | payer MEDICARE ==
[~2020-04-27] VITALS: Ht 157.4 cm; Wt 61.2 kg
[2020-04-27 09:44] VITALS: BP 154/89
[2020-04-27 11:15] VITALS: BP 147/93
[2020-04-27] MEDS ORDERED: RIVASTIGMINE T1.5 M1 PO (11:16)
[2020-04-27] MEDS ORDERED: RIVASTIGMINE TAR3 M1 PO (11:18)
[2020-04-27] MEDS ORDERED: KEPPRA500 MG PO (11:19)
[2020-04-27] MEDS ORDERED: MIRALAX17 GM PO (11:20)
[2020-04-27] MEDS ORDERED: PROVENTIL HFA6.7 GM INH (11:23)
[2020-04-27] MEDS ORDERED: FLOMAX0.4 MG PO (11:24)
[2020-04-27] MEDS ORDERED: TYLENOL325 M1 PO (11:25)
[2020-04-27] MEDS ORDERED: VIMPAT100 MG PO (11:27)
[2020-04-27 12:00] VITALS: BP 147/93
[2020-04-27] MEDS ORDERED: VERAPAMIL HCL120 MG PO (13:09)
[2020-04-27 16:00] VITALS: BP 132/66
[2020-04-27 20:00] VITALS: BP 156/61
[2020-04-28] VITALS: BP 171/67
[2020-04-28 06:26] LABS: BASO # 0.1 10*3/uL (0.0-0.1); BASO % 0.4 % (0.0-1.0); EOS # 0.1 10*3/uL (0.0-0.4); EOS % 0.7 % (1.0-4.0); HEMATOCRIT 41.6 % (37.0-47.0); LYMPH # 1.1 10*3/uL (1.3-4.4); MEAN CELL VOLUME 90.2 fl (81.0-99.0); MEAN CORPUSCULAR HGB 29.1 pg (27.0-31.0); MEAN CORPUSCULAR HGB CONC 32.2 g/dl (33.0-37.0); MEAN PLATELET VOLUME 9.4 fl (9.6-12.3); MONO # 1.3 10*3/uL (0.1-1.0); MONO % 10.7 % (3.0-9.0); NEUT # 9.6 10*3/uL (2.3-7.9); NEUT % 78.7 % (47.0-73.0); PLATELET COUNT AUTOMATED 315 10*3/uL (130-400); RED BLOOD COUNT 4.61 10*6/uL (4.10-5.10); RED CELL DISTRI WIDTH 11.8 % (0-14.5); WHITE BLOOD COUNT 12.1 10*3/uL (4.8-10.8)
[2020-04-28 06:42] LABS: ALKALINE PHOSPHATASE 67 U/L (45-117); BUN 18 mg/dl (7-24); CHLORIDE 111 mmol/L (98-107); CREATININE 0.53 mg/dL (0.55-1.02); FREE T4 1.58 ng/dl (0.76-1.46); POTASSIUM 3.6 mmol/L (3.5-5.1); SGOT/AST 16 IU/L (3-35); SGPT/ALT 28 U/L (12-78); SODIUM 144 mmol/L (136-145); TOTAL PROTEIN 6.9 gm/dL (6.4-8.2)
[2020-04-28 08:00] VITALS: BP 154/62
[2020-04-28 12:00] VITALS: BP 157/69
[2020-04-28 16:00] VITALS: BP 143/68
[2020-04-28 20:00] VITALS: BP 147/65
[2020-04-29] VITALS: BP 170/57
[2020-04-29 06:34] LABS: BASO # 0.1 10*3/uL (0.0-0.1); BASO % 0.4 % (0.0-1.0); EOS # 0.1 10*3/uL (0.0-0.4); EOS % 0.4 % (1.0-4.0); HEMATOCRIT 36.8 % (37.0-47.0); LYMPH % 8.5 % (27.0-41.0); MEAN CELL VOLUME 90.6 fl (81.0-99.0); MEAN CORPUSCULAR HGB 28.6 pg (27.0-31.0); MEAN CORPUSCULAR HGB CONC 31.5 g/dl (33.0-37.0); MEAN PLATELET VOLUME 9.6 fl (9.6-12.3); MONO # 1.4 10*3/uL (0.1-1.0); MONO % 12.1 % (3.0-9.0); NEUT % 77.6 % (47.0-73.0); PLATELET COUNT AUTOMATED 255 10*3/uL (130-400); RED BLOOD COUNT 4.06 10*6/uL (4.10-5.10); RED CELL DISTRI WIDTH 11.9 % (0-14.5); WHITE BLOOD COUNT 11.6 10*3/uL (4.8-10.8)
[2020-04-29 06:48] LABS: BUN 11 mg/dl (7-24); CHLORIDE 114 mmol/L (98-107); CREATININE 0.54 mg/dL (0.55-1.02); POTASSIUM 2.8 mmol/L (3.5-5.1); SODIUM 148 mmol/L (136-145)
[2020-04-29 08:00] VITALS: BP 157/61
[2020-04-29 10:36] LABS: BILIRUBIN Negative (Negative); BLOOD 2+ (Negative); CLARITY Cloudy (Clear); COLOR Yellow (Yellow); GLUCOSE Negative (Negative); KETONE 1+ (Negative); LEUKO ESTERASE Trace (Negative); NITRITE Negative (Negative); PH 5.5 (4.5-8.0); UROBILINOGEN 0.2 E.U./dl (0.0-1.0)
[2020-04-29 10:53] LABS: BACTERIA 1+; URIC ACID CRYSTALS 4+
[2020-04-29 12:00] VITALS: BP 173/72
[2020-04-29 16:00] VITALS: BP 154/58
[2020-04-29 20:00] VITALS: BP 155/53
[2020-04-30] VITALS: BP 179/66
[2020-04-30 06:15] LABS: BUN 10 mg/dl (7-24); CHLORIDE 113 mmol/L (98-107); CREATININE 0.43 mg/dL (0.55-1.02); POTASSIUM 3.2 mmol/L (3.5-5.1); SODIUM 147 mmol/L (136-145)
[2020-04-30 06:32] LABS: BASO # 0.1 10*3/uL (0.0-0.1); BASO % 0.5 % (0.0-1.0); EOS # 0.1 10*3/uL (0.0-0.4); EOS % 1.3 % (1.0-4.0); HEMATOCRIT 35.6 % (37.0-47.0); LYMPH # 1.4 10*3/uL (1.3-4.4); LYMPH % 12.7 % (27.0-41.0); MEAN CELL VOLUME 91.8 fl (81.0-99.0); MEAN CORPUSCULAR HGB 28.6 pg (27.0-31.0); MEAN CORPUSCULAR HGB CONC 31.2 g/dl (33.0-37.0); MEAN PLATELET VOLUME 10.1 fl (9.6-12.3); MONO # 0.9 10*3/uL (0.1-1.0); MONO % 7.8 % (3.0-9.0); NEUT # 8.6 10*3/uL (2.3-7.9); PLATELET COUNT AUTOMATED 278 10*3/uL (130-400); RED BLOOD COUNT 3.88 10*6/uL (4.10-5.10); RED CELL DISTRI WIDTH 12.1 % (0-14.5); WHITE BLOOD COUNT 11.1 10*3/uL (4.8-10.8)
[2020-04-30 08:00] VITALS: BP 144/56
[2020-04-30 12:00] VITALS: BP 136/52
[2020-04-30 16:00] VITALS: BP 153/63
[2020-04-30 18:00] VITALS: BP 153/63
[2020-04-30 20:00] VITALS: BP 134/49
[2020-05-01] VITALS: BP 143/51
[2020-05-01 06:51] LABS: BASO % 0.5 % (0.0-1.0); EOS # 0.2 10*3/uL (0.0-0.4); EOS % 2.9 % (1.0-4.0); HEMATOCRIT 33.5 % (37.0-47.0); LYMPH # 1.1 10*3/uL (1.3-4.4); MEAN CELL VOLUME 90.5 fl (81.0-99.0); MEAN CORPUSCULAR HGB 29.5 pg (27.0-31.0); MEAN CORPUSCULAR HGB CONC 32.5 g/dl (33.0-37.0); MONO # 0.6 10*3/uL (0.1-1.0); NEUT # 5.9 10*3/uL (2.3-7.9); NEUT % 75.1 % (47.0-73.0); PLATELET COUNT AUTOMATED 289 10*3/uL (130-400); RED CELL DISTRI WIDTH 12.2 % (0-14.5); WHITE BLOOD COUNT 7.8 10*3/uL (4.8-10.8)
[2020-05-01 07:28] LABS: CHLORIDE 114 mmol/L (98-107); POTASSIUM 2.9 mmol/L (3.5-5.1); SODIUM 145 mmol/L (136-145)
[2020-05-01 07:35] LABS: ALBUMIN 2.1 gm/dl (3.1-4.5); ALKALINE PHOSPHATASE 62 U/L (45-117); BUN 9 mg/dl (7-24); CREATININE 0.37 mg/dL (0.55-1.02); SGOT/AST 9 IU/L (3-35); SGPT/ALT 16 U/L (12-78); TOTAL PROTEIN 5.5 gm/dL (6.4-8.2)
[2020-05-01 08:00] VITALS: BP 160/77
[2020-05-01 12:00] VITALS: BP 150/61
[2020-05-01 16:00] VITALS: BP 159/63
[2020-05-01 20:00] VITALS: BP 168/72; BP 182/64
[2020-05-02] VITALS: BP 164/82; BP 174/79
[2020-05-02 06:57] LABS: BASO % 0.5 % (0.0-1.0); EOS # 0.3 10*3/uL (0.0-0.4); EOS % 4.3 % (1.0-4.0); HEMATOCRIT 34.5 % (37.0-47.0); LYMPH # 0.9 10*3/uL (1.3-4.4); LYMPH % 14.9 % (27.0-41.0); MEAN CELL VOLUME 88.2 fl (81.0-99.0); MEAN CORPUSCULAR HGB 28.1 pg (27.0-31.0); MEAN CORPUSCULAR HGB CONC 31.9 g/dl (33.0-37.0); MEAN PLATELET VOLUME 9.6 fl (9.6-12.3); MONO # 0.4 10*3/uL (0.1-1.0); MONO % 7.2 % (3.0-9.0); NEUT # 4.3 10*3/uL (2.3-7.9); NEUT % 72.6 % (47.0-73.0); PLATELET COUNT AUTOMATED 296 10*3/uL (130-400); RED BLOOD COUNT 3.91 10*6/uL (4.10-5.10); RED CELL DISTRI WIDTH 11.9 % (0-14.5)
[2020-05-02 07:25] LABS: ALBUMIN 2.4 gm/dl (3.1-4.5); ALKALINE PHOSPHATASE 58 U/L (45-117); BUN 4 mg/dl (7-24); CHLORIDE 111 mmol/L (98-107); CREATININE 0.41 mg/dL (0.55-1.02); POTASSIUM 3.1 mmol/L (3.5-5.1); SGOT/AST 11 IU/L (3-35); SGPT/ALT 17 U/L (12-78); SODIUM 144 mmol/L (136-145); TOTAL PROTEIN 5.9 gm/dL (6.4-8.2)
[2020-05-02 08:00] VITALS: BP 169/68
[2020-05-02 12:00] VITALS: BP 130/82
[2020-05-02 16:00] VITALS: BP 158/66
[2020-05-02 20:00] VITALS: BP 152/55
[2020-05-03] VITALS: BP 153/62
[2020-05-03 08:00] VITALS: BP 155/62
[2020-05-03] MEDS ORDERED: OMNICEF300 MG PO (10:00)
[2020-05-03] MEDS ORDERED: KLOR-CON M2020 ME1 PO (10:32)
[2020-05-03 12:00] VITALS: BP 153/67
[2020-05-08] MEDS ORDERED: CEFTRIAXONE1 G1 IM (18:41)
== END 2020-05-03 15:24 | disposition other institution (70) | DRG 871 ==
LOC: ED 09:35 → 5E 10:19 → EDHOLD 10:19 → 5E 10:43
PROVIDERS: Internal Medicine; Registered Nurse; Social Worker Clinical; Student in an Organized Health Care Education/Training Program; ADMIT Emergency Medicine; ATTEND Emergency Medicine
DX: A41.9 Sepsis, unspecified organism (principal); G93.41 Metabolic encephalopathy; N39.0 Urinary tract infection, site not specified; E44.0 Moderate protein-calorie malnutrition; E87.0 Hyperosmolality and hypernatremia; E83.41 Hypermagnesemia; E87.8 Other disorders of electrolyte and fluid balance, not elsewhere classified; R62.7 Adult failure to thrive; E86.0 Dehydration; R74.8 Abnormal levels of other serum enzymes; I10 Essential (primary) hypertension; M17.10 Unilateral primary osteoarthritis, unspecified knee; E16.2 Hypoglycemia, unspecified; G30.9 Alzheimer's disease, unspecified; F02.80 Dementia in other diseases classified elsewhere, unspecified severity, without behavioral disturbance, psychotic disturbance, mood disturbance, and anxiety; Z20.822 Contact with and (suspected) exposure to COVID-19; F41.9 Anxiety disorder, unspecified; Z68.24 Body mass index [BMI] 24.0-24.9, adult; Z88.2 Allergy status to sulfonamides; Z90.49 Acquired absence of other specified parts of digestive tract; Z90.710 Acquired absence of both cervix and uterus; Z82.49 Family history of ischemic heart disease and other diseases of the circulatory system; Z81.2 Family history of tobacco abuse and dependence

== ENCOUNTER 2020-05-11 17:57 | Inpatient (IN) | payer MEDICARE ==
[~2020-05-11] VITALS: Ht 170.2 cm; Wt 57.6 kg
[~2020-05-11 17:57] MED LIST changes: +CEFTRIAXONE1 G1 IM; +FLOMAX0.4 MG PO; +KEPPRA500 MG PO; +KLOR-CON M2020 ME1 PO; +MIRALAX17 GM PO; +OMNICEF300 MG PO; +PROVENTIL HFA6.7 GM INH; +RIVASTIGMINE T1.5 M1 PO; +RIVASTIGMINE TAR3 M1 PO; +VERAPAMIL HCL120 MG PO; +VIMPAT100 MG PO
[2020-05-11 18:00] VITALS: BP 134/72
[2020-05-11 18:39] LABS: BASO # 0.1 10*3/uL (0.0-0.1); BASO % 0.5 % (0.0-1.0); EOS # 0.3 10*3/uL (0.0-0.4); EOS % 2.4 % (1.0-4.0); HEMATOCRIT 48.9 % (37.0-47.0); LYMPH # 1.6 10*3/uL (1.3-4.4); LYMPH % 12.3 % (27.0-41.0); MEAN CELL VOLUME 95.5 fl (81.0-99.0); MEAN CORPUSCULAR HGB 27.9 pg (27.0-31.0); MEAN CORPUSCULAR HGB CONC 29.2 g/dl (33.0-37.0); MEAN PLATELET VOLUME 10.7 fl (9.6-12.3); MONO # 0.9 10*3/uL (0.1-1.0); MONO % 6.7 % (3.0-9.0); NEUT # 9.8 10*3/uL (2.3-7.9); NEUT % 77.1 % (47.0-73.0); PLATELET COUNT AUTOMATED 400 10*3/uL (130-400); RED BLOOD COUNT 5.12 10*6/uL (4.10-5.10); RED CELL DISTRI WIDTH 13.2 % (0-14.5); WHITE BLOOD COUNT 12.8 10*3/uL (4.8-10.8)
[2020-05-11 18:41] LABS: ABG BASE EXCESS -0.8 mmol/L (-2.0-2.0); ARTERIAL BLOOD GAS PH 7.393 (7.35-7.45)
[2020-05-11 18:50] LABS: ACT PARTIAL THROMBO TIME 22.1 SECONDS (20.0-32.1); INTERNATIONAL NORM RATIO 1.4 (2.0-3.5)
[2020-05-11 18:55] LABS: ALBUMIN 2.8 gm/dl (3.1-4.5); ALKALINE PHOSPHATASE 67 U/L (45-117); BUN 53 mg/dl (7-24); CPK 28 U/L (26-192); POTASSIUM 3.9 mmol/L (3.5-5.1); SGOT/AST 14 IU/L (3-35); SGPT/ALT 23 U/L (12-78)
[2020-05-11 18:57] LABS: TROPONIN I < 0.015 ng/ml (<0.045)
[2020-05-11 19:03] LABS: CHLORIDE 132 mmol/L (98-107); SODIUM 164 mmol/L (136-145)
[2020-05-11 19:16] LABS: BILIRUBIN Negative (Negative); BLOOD 1+ (Negative); CLARITY Turbid (Clear); COLOR Yellow (Yellow); GLUCOSE Negative (Negative); KETONE 1+ (Negative); LEUKO ESTERASE 2+ (Negative); NITRITE Negative (Negative); PH 5.5 (4.5-8.0); UROBILINOGEN 0.2 E.U./dl (0.0-1.0)
[2020-05-11 19:23] LABS: MUCOUS 1+; WBC TNTC wbc/hpf (0-5); YEAST 2+
[2020-05-11 20:00] VITALS: BP 128/58
[2020-05-11 23:23] VITALS: BP 102/68
[2020-05-12] VITALS (8 sets, daily range): BP systolic 106–152; BP diastolic 57–77
[2020-05-12 01:58] LABS: BUN 53 mg/dl (7-24); CREATININE 0.85 mg/dL (0.55-1.02); POTASSIUM 3.6 mmol/L (3.5-5.1)
[2020-05-12 02:02] LABS: CHLORIDE 134 mmol/L (98-107); SODIUM 165 mmol/L (136-145)
[2020-05-12 06:08] LABS: ALBUMIN 2.8 gm/dl (3.1-4.5); BUN 49 mg/dl (7-24); CREATININE 0.96 mg/dL (0.55-1.02); POTASSIUM 3.8 mmol/L (3.5-5.1); SGOT/AST 10 IU/L (3-35); SGPT/ALT 21 U/L (12-78)
[2020-05-12 06:09] LABS: ALKALINE PHOSPHATASE 68 U/L (45-117)
[2020-05-12 06:11] LABS: BASO # 0.1 10*3/uL (0.0-0.1); BASO % 0.7 % (0.0-1.0); EOS # 0.3 10*3/uL (0.0-0.4); EOS % 2.5 % (1.0-4.0); HEMATOCRIT 49.6 % (37.0-47.0); LYMPH # 1.6 10*3/uL (1.3-4.4); LYMPH % 13.8 % (27.0-41.0); MEAN CELL VOLUME 95.4 fl (81.0-99.0); MEAN CORPUSCULAR HGB 27.9 pg (27.0-31.0); MEAN CORPUSCULAR HGB CONC 29.2 g/dl (33.0-37.0); MEAN PLATELET VOLUME 10.9 fl (9.6-12.3); MONO # 0.9 10*3/uL (0.1-1.0); MONO % 7.3 % (3.0-9.0); NEUT # 8.9 10*3/uL (2.3-7.9); NEUT % 74.9 % (47.0-73.0); PLATELET COUNT AUTOMATED 390 10*3/uL (130-400); RED CELL DISTRI WIDTH 13.4 % (0-14.5); WHITE BLOOD COUNT 11.9 10*3/uL (4.8-10.8)
[2020-05-12 06:13] LABS: CHLORIDE 132 mmol/L (98-107); SODIUM 165 mmol/L (136-145)
[2020-05-12 06:14] LABS: ACT PARTIAL THROMBO TIME 29.2 SECONDS (20.0-32.1); INTERNATIONAL NORM RATIO 1.5 (2.0-3.5)
[2020-05-12 16:38] LABS: BUN 46 mg/dl (7-24); POTASSIUM 3.5 mmol/L (3.5-5.1)
[2020-05-12 16:43] LABS: SODIUM 165 mmol/L (136-145)
[2020-05-12 16:44] LABS: CHLORIDE 135 mmol/L (98-107)
[2020-05-12] MEDS ORDERED: POTASSIUM CHLO20 ME3 PO (18:44)
[2020-05-12] MEDS ORDERED: VISTARIL25 MG PO (18:46)
[2020-05-12] MEDS ORDERED: VITAMIN C500 M6 PO (18:47)
[2020-05-12] MEDS ORDERED: ZINC GLUCONATE50 MG PO (18:48)
[2020-05-12 22:46] LABS: BUN 47 mg/dl (7-24); CREATININE 0.99 mg/dL (0.55-1.02); POTASSIUM 3.9 mmol/L (3.5-5.1)
[2020-05-12 22:47] LABS: SODIUM 165 mmol/L (136-145)
[2020-05-12 22:48] LABS: CHLORIDE 134 mmol/L (98-107)
[2020-05-13] VITALS (8 sets, daily range): BP systolic 115–141; BP diastolic 56–74
[2020-05-13 06:07] LABS: BUN 45 mg/dl (7-24); CREATININE 1.01 mg/dL (0.55-1.02); POTASSIUM 3.6 mmol/L (3.5-5.1)
[2020-05-13 06:11] LABS: CHLORIDE 130 mmol/L (98-107); SODIUM 163 mmol/L (136-145)
[2020-05-13 06:14] LABS: BASO # 0.1 10*3/uL (0.0-0.1); BASO % 0.6 % (0.0-1.0); EOS # 0.3 10*3/uL (0.0-0.4); EOS % 2.5 % (1.0-4.0); HEMATOCRIT 47.7 % (37.0-47.0); LYMPH # 1.4 10*3/uL (1.3-4.4); LYMPH % 11.2 % (27.0-41.0); MEAN CELL VOLUME 96.4 fl (81.0-99.0); MEAN CORPUSCULAR HGB 28.3 pg (27.0-31.0); MEAN CORPUSCULAR HGB CONC 29.4 g/dl (33.0-37.0); MEAN PLATELET VOLUME 11.5 fl (9.6-12.3); MONO # 1.1 10*3/uL (0.1-1.0); MONO % 8.8 % (3.0-9.0); NEUT # 9.5 10*3/uL (2.3-7.9); NEUT % 75.5 % (47.0-73.0); PLATELET COUNT AUTOMATED 355 10*3/uL (130-400); RED BLOOD COUNT 4.95 10*6/uL (4.10-5.10); RED CELL DISTRI WIDTH 13.5 % (0-14.5); WHITE BLOOD COUNT 12.6 10*3/uL (4.8-10.8)
[2020-05-13 18:18] LABS: BUN 43 mg/dl (7-24); CREATININE 0.96 mg/dL (0.55-1.02); POTASSIUM 3.5 mmol/L (3.5-5.1); SODIUM 158 mmol/L (136-145)
[2020-05-13 18:22] LABS: CHLORIDE 127 mmol/L (98-107)
[2020-05-14] VITALS: BP 134/54
[2020-05-14 07:02] LABS: BASO # 0.1 10*3/uL (0.0-0.1); BASO % 0.5 % (0.0-1.0); EOS # 0.3 10*3/uL (0.0-0.4); EOS % 2.5 % (1.0-4.0); LYMPH # 1.7 10*3/uL (1.3-4.4); MEAN CORPUSCULAR HGB 28.1 pg (27.0-31.0); MEAN CORPUSCULAR HGB CONC 29.3 g/dl (33.0-37.0); MEAN PLATELET VOLUME 11.2 fl (9.6-12.3); MONO # 0.8 10*3/uL (0.1-1.0); MONO % 7.2 % (3.0-9.0); NEUT # 8.2 10*3/uL (2.3-7.9); NEUT % 72.8 % (47.0-73.0); PLATELET COUNT AUTOMATED 286 10*3/uL (130-400); RED BLOOD COUNT 4.48 10*6/uL (4.10-5.10); RED CELL DISTRI WIDTH 13.3 % (0-14.5); WHITE BLOOD COUNT 11.2 10*3/uL (4.8-10.8)
[2020-05-14 07:36] LABS: BUN 37 mg/dl (7-24); CHLORIDE 121 mmol/L (98-107); POTASSIUM 3.4 mmol/L (3.5-5.1); SODIUM 154 mmol/L (136-145)
[2020-05-14 07:38] LABS: CREATININE 0.91 mg/dL (0.55-1.02)
[2020-05-14 08:00] VITALS: BP 143/49
[2020-05-14 12:00] VITALS: BP 140/56
[2020-05-14 20:00] VITALS: BP 131/58
[2020-05-15] VITALS: BP 104/56
[2020-05-15 07:20] LABS: BASO % 0.2 % (0.0-1.0); EOS # 0.2 10*3/uL (0.0-0.4); EOS % 1.8 % (1.0-4.0); HEMATOCRIT 37.4 % (37.0-47.0); LYMPH # 1.6 10*3/uL (1.3-4.4); MEAN CORPUSCULAR HGB 28.6 pg (27.0-31.0); MEAN PLATELET VOLUME 11.7 fl (9.6-12.3); MONO % 8.4 % (3.0-9.0); NEUT # 9.1 10*3/uL (2.3-7.9); NEUT % 74.8 % (47.0-73.0); PLATELET COUNT AUTOMATED 226 10*3/uL (130-400); RED BLOOD COUNT 4.05 10*6/uL (4.10-5.10); RED CELL DISTRI WIDTH 13.1 % (0-14.5); WHITE BLOOD COUNT 12.1 10*3/uL (4.8-10.8)
[2020-05-15 07:27] LABS: MEAN CELL VOLUME 92.3 fl (81.0-99.0)
[2020-05-15 07:42] LABS: ALBUMIN 2.2 gm/dl (3.1-4.5); ALKALINE PHOSPHATASE 69 U/L (45-117); CHLORIDE 113 mmol/L (98-107); CREATININE 0.66 mg/dL (0.55-1.02); SGOT/AST 20 IU/L (3-35); SGPT/ALT 28 U/L (12-78); SODIUM 145 mmol/L (136-145); TOTAL PROTEIN 5.3 gm/dL (6.4-8.2)
[2020-05-15 07:45] LABS: BUN 26 mg/dl (7-24)
[2020-05-15 12:00] VITALS: BP 110/56
[2020-05-15 16:00] VITALS: BP 107/60
[2020-05-15 20:00] VITALS: BP 109/37
[2020-05-16] VITALS (7 sets, daily range): BP systolic 108–129; BP diastolic 46–64
[2020-05-16 06:39] LABS: BASO % 0.4 % (0.0-1.0); EOS # 0.2 10*3/uL (0.0-0.4); EOS % 2.1 % (1.0-4.0); HEMATOCRIT 35.1 % (37.0-47.0); LYMPH # 1.7 10*3/uL (1.3-4.4); LYMPH % 19.1 % (27.0-41.0); MEAN CELL VOLUME 89.8 fl (81.0-99.0); MEAN CORPUSCULAR HGB 27.9 pg (27.0-31.0); MEAN CORPUSCULAR HGB CONC 31.1 g/dl (33.0-37.0); MEAN PLATELET VOLUME 11.4 fl (9.6-12.3); MONO # 0.6 10*3/uL (0.1-1.0); MONO % 6.9 % (3.0-9.0); NEUT # 6.2 10*3/uL (2.3-7.9); NEUT % 69.6 % (47.0-73.0); PLATELET COUNT AUTOMATED 203 10*3/uL (130-400); RED BLOOD COUNT 3.91 10*6/uL (4.10-5.10); WHITE BLOOD COUNT 8.9 10*3/uL (4.8-10.8)
[2020-05-16 06:54] LABS: ALKALINE PHOSPHATASE 64 U/L (45-117); BUN 20 mg/dl (7-24); CHLORIDE 112 mmol/L (98-107); CREATININE 0.66 mg/dL (0.55-1.02); POTASSIUM 3.3 mmol/L (3.5-5.1); SGOT/AST 13 IU/L (3-35); SGPT/ALT 19 U/L (12-78); SODIUM 143 mmol/L (136-145); TOTAL PROTEIN 4.9 gm/dL (6.4-8.2)
[2020-05-17] VITALS: BP 126/66
[2020-05-17 07:05] LABS: BASO % 0.2 % (0.0-1.0); EOS # 0.3 10*3/uL (0.0-0.4); EOS % 2.1 % (1.0-4.0); LYMPH # 1.5 10*3/uL (1.3-4.4); LYMPH % 12.4 % (27.0-41.0); MEAN CELL VOLUME 90.2 fl (81.0-99.0); MEAN CORPUSCULAR HGB 28.4 pg (27.0-31.0); MEAN CORPUSCULAR HGB CONC 31.5 g/dl (33.0-37.0); MEAN PLATELET VOLUME 11.6 fl (9.6-12.3); MONO # 0.7 10*3/uL (0.1-1.0); MONO % 6.2 % (3.0-9.0); NEUT # 9.3 10*3/uL (2.3-7.9); NEUT % 77.1 % (47.0-73.0); PLATELET COUNT AUTOMATED 225 10*3/uL (130-400); RED BLOOD COUNT 3.77 10*6/uL (4.10-5.10); RED CELL DISTRI WIDTH 13.2 % (0-14.5)
[2020-05-17 07:17] LABS: ALKALINE PHOSPHATASE 71 U/L (45-117); BUN 14 mg/dl (7-24); CHLORIDE 112 mmol/L (98-107); CREATININE 0.55 mg/dL (0.55-1.02); POTASSIUM 3.1 mmol/L (3.5-5.1); SGOT/AST 17 IU/L (3-35); SGPT/ALT 19 U/L (12-78); SODIUM 143 mmol/L (136-145); TOTAL PROTEIN 5.4 gm/dL (6.4-8.2)
[2020-05-17 08:00] VITALS: BP 139/77
[2020-05-17 12:00] VITALS: BP 146/68
[2020-05-17] MEDS ORDERED: LINEZOLID600 MG PO (13:09)
[2020-05-17] MEDS ORDERED: TWOCAL-HN 240 ML8 OZ PEG (13:09)
[2020-05-17 16:00] VITALS: BP 146/68
== END 2020-05-17 14:18 | DRG 698 ==
LOC: ED 17:57 → 5E 21:56 → EDHOLD 21:56 → 5E 05-13 06:56
PROVIDERS: Emergency Medicine; Hospitalist; Internal Medicine; Internal Medicine Nephrology; Social Worker Clinical; ADMIT Emergency Medicine; ATTEND Emergency Medicine
PROC: 0DH64UZ Insertion of Feeding Device into Stomach, Percutaneous Endoscopic Approach (ICD-10-PCS; principal; 2020-05-16)
DX: T83.511A Infection and inflammatory reaction due to indwelling urethral catheter, initial encounter (principal); A41.9 Sepsis, unspecified organism; G93.41 Metabolic encephalopathy; E43 Unspecified severe protein-calorie malnutrition; E87.0 Hyperosmolality and hypernatremia; I50.32 Chronic diastolic (congestive) heart failure; N17.9 Acute kidney failure, unspecified; N39.0 Urinary tract infection, site not specified; M54.30 Sciatica, unspecified side; R62.7 Adult failure to thrive; I11.0 Hypertensive heart disease with heart failure; M17.10 Unilateral primary osteoarthritis, unspecified knee; R31.9 Hematuria, unspecified; E86.0 Dehydration; E87.8 Other disorders of electrolyte and fluid balance, not elsewhere classified; D32.9 Benign neoplasm of meninges, unspecified; R13.10 Dysphagia, unspecified; E87.6 Hypokalemia; R73.9 Hyperglycemia, unspecified; Z66 Do not resuscitate; Z51.5 Encounter for palliative care; Z20.822 Contact with and (suspected) exposure to COVID-19; Z88.2 Allergy status to sulfonamides; Z90.710 Acquired absence of both cervix and uterus; Z90.49 Acquired absence of other specified parts of digestive tract; Z82.49 Family history of ischemic heart disease and other diseases of the circulatory system; Z68.24 Body mass index [BMI] 24.0-24.9, adult